=== PATIENT | male | born 1935 | race Caucasian/White ===

== ENCOUNTER → 2016-11-12 | Outpatient (CLI) | payer OTHER ==
[2016-11-12 14:44] LABS: SERUM ALBUMIN 3.9 g/dL (3.5-4.8)
[2016-11-12 15:39] LABS: FREE T4 (FREE THYROXINE) 1.06 ng/dL (0.93-1.71)
== END ==
LOC: LAB 09:00
PROVIDERS: ATTEND Physician Assistant Medical
DX: R94.6 Abnormal results of thyroid function studies (principal); R79.89 Other specified abnormal findings of blood chemistry
CPT/HCPCS: 80053; 84439; 84443